=== PATIENT | male | born 1975 | race African-American/Black ===

== ENCOUNTER 2020-10-01 16:53 | Emergency (ER) | payer OTHER, SELFPAY ==
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
[2020-10-01 17:01] VITALS: BP 200/112; PULSE 76; RESP 18; TEMP 35.7; O2SAT 98
[2020-10-01 19:19] VITALS: BP 193/103; PULSE 87; RESP 18; O2SAT 97
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
[2020-10-01] MEDS: KETOROLAC (*BKC) 60 MG/2 ML VIAL 30 MG IM (19:32)
--- NOTE | 2020-10-01 19:32 | PC.NURSE ---
pain medication given as ordered. denies other needs.
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
[2020-10-01 20:28] VITALS: BP 170/102; PULSE 82; RESP 18
== END 2020-10-01 20:29 | disposition home or self-care (01) ==
PROVIDERS: Emergency Provider Emergency Medicine
DX: S46.911A Strain of unspecified muscle, fascia and tendon at shoulder and upper arm level, right arm, initial encounter (principal); I10 Essential (primary) hypertension; V43.52XA Car driver injured in collision with other type car in traffic accident, initial encounter
CPT/HCPCS: 73030; 73080; 96372; 99284; J1885